=== PATIENT | female | born 1945 | race African-American/Black ===

== ENCOUNTER → 2016-10-22 | Day surgery (SDC) | payer MEDICARE ==
[~2016-10-22] MED LIST: ALPR0.254 PO; FENTANYL PF 100 MCG/2 ML VIAL. IV PRN; HYDR-971 PO; HYDROMORPHONE 2 MG/ML VIAL. IV PRN; IV RINGERS,LACTATED 1000ML 1,000 ML IV SCH; LIDOCAINE 1% 1 ML SYRINGE. ID PRN; LOSA50TA6 PO; MORPHINE SULFATE 2 MG/ML DISP.SYRIN. IV PRN; ONDANSETRON PF 4 MG/2 ML VIAL. IV PRN; PRAV10TA2 PO; PROCHLORPERAZINE 10 MG/2 ML VIAL. IV PRN; PROPOFOL 0 ML IV ONE; PROPOFOL 20 ML IV ONE; RABE20TA5 PO; TIZA2TAB PO
[2016-10-22 08:45] VITALS: BP 139/83
--- NOTE | 2016-10-22 23:54 | CONS ---
DATE OF CONSULTATION: 10/22/2016 REFERRING PHYSICIAN: HUBERT Fulton HISTORY OF PRESENT ILLNESS: A 71-year-old female with past medical history significant for osteoarthrosis, hyperlipidemia, hypertension and gastroesophageal reflux disease, seen for screening colon exam. Bowel habits have been regular without diarrhea or constipation. She has had stable weight since and reconfigured after a gastric bypass. There has been no diarrhea or constipation. No melena, no hematochezia. She is otherwise without additional complaints. PAST MEDICAL HISTORY: Hypertension, osteoarthrosis, hyperlipidemia, reflux, morbid obesity, status post gastric bypass, back surgery, hysterectomy, joint replacement, tubal ligation. ALLERGIES: Erythromycin. MEDICATIONS: Include Aciphex, losartan, pravastatin, tizanidine, alprazolam and hydrocodone. FAMILY AND SOCIAL HISTORY: She does not drink or smoke. FAMILY HISTORY: Noncontributory. REVIEW OF SYSTEMS: Per records. PHYSICAL EXAMINATION: GENERAL: Reveals a well-nourished, well-developed female who is alert, cooperative, in no acute distress. VITAL SIGNS: Temperature is 98.8, pulse 78, respirations 20. HEENT: Normocephalic and atraumatic head. Pupils and extraocular muscles not tested. Sclerae anicteric. NECK: Supple. LUNGS: Clear. CARDIOVASCULAR: Reveals an S1, S2 without S3, S4 or appreciable murmur. ABDOMEN: Reveals a soft abdomen, normal bowel sounds, without appreciable hepatosplenomegaly. EXTREMITIES: Reveals no cyanosis, clubbing or edema. IMPRESSION: Colorectal screening is warranted at this time. Risks and benefits of procedure including risk of hemorrhage or perforation have been discussed with the patient who is willing to proceed at this time. I would like to thank, Anastasiya Aguayo, for allowing us to consult and participate in the patient's care. ASTRID MOREL MD DR: JATINDER/rae JOB#: [id number] / [id number]
== END | disposition home or self-care (01) ==
LOC: SURG 06:58
PROVIDERS: ATTEND Internal Medicine Gastroenterology
DX: Z12.11 Encounter for screening for malignant neoplasm of colon (principal); K57.30 Diverticulosis of large intestine without perforation or abscess without bleeding; K64.0 First degree hemorrhoids; E78.00 Pure hypercholesterolemia, unspecified; I10 Essential (primary) hypertension; E66.9 Obesity, unspecified; Z90.710 Acquired absence of both cervix and uterus; M19.90 Unspecified osteoarthritis, unspecified site
CPT/HCPCS: G0121; J2704

== ENCOUNTER 2017-09-27 19:10 | Emergency (ER) | payer MEDICARE ==
[~2017-09-27] VITALS: Ht 165.1 cm; Wt 83.9 kg
[~2017-09-27 19:10] MED LIST changes: -FENTANYL PF 100 MCG/2 ML VIAL. IV PRN; -HYDROMORPHONE 2 MG/ML VIAL. IV PRN; -IV RINGERS,LACTATED 1000ML 1,000 ML IV SCH; -LIDOCAINE 1% 1 ML SYRINGE. ID PRN; -MORPHINE SULFATE 2 MG/ML DISP.SYRIN. IV PRN; -ONDANSETRON PF 4 MG/2 ML VIAL. IV PRN; -PROCHLORPERAZINE 10 MG/2 ML VIAL. IV PRN; -PROPOFOL 0 ML IV ONE; -PROPOFOL 20 ML IV ONE; +RABE20TA18 PO; -RABE20TA5 PO
[2017-09-27 19:27] VITALS: BP 132/75
[2017-09-27] MEDS ORDERED: LIDOCAINE 1% / SOD BICARB 8.4% 20 ML VIAL. IJ ONE (19:45)
[2017-09-27] MEDS ORDERED: LIDOCAINE 1%/EPI 1:100,000 20 ML VIAL. INJ ONE (19:45)
--- NOTE | 2017-09-27 21:00 | PHYS DOC ---
Past Medical History Past Medical History: Arthritis, GERD, Hypertension Past Surgical History: Hysterectomy, Knee Replacement, Other Additional Past Surgical Histo: BACK SX Alcohol Use: None Drug Use: None Adult General Chief Complaint Chief Complaint: MECHANICAL FALL HPI HPI Patient is a 72 year old [f__sex] who presents with [] Review of Systems Review of Systems Constitutional: Denies fever or chills [] Eyes: Denies change in visual acuity, redness, or eye pain [] HENT: Denies nasal congestion or sore throat [] Respiratory: Denies cough or shortness of breath [] Cardiovascular: No additional information not addressed in HPI [] GI: Denies abdominal pain, nausea, vomiting, bloody stools or diarrhea [] : Denies dysuria or hematuria [] Musculoskeletal: Denies back pain or joint pain [] Integument: Denies rash or skin lesions [] Neurologic: Denies headache, focal weakness or sensory changes [] Endocrine: Denies polyuria or polydipsia [] All other systems were reviewed and found to be within normal limits, except as documented in this note. Current Medications Current Medications Current Medications Medications (Trade) Dose Ordered Sig/Abe Start Time Stop Time Status Last Admin Dose Admin Lidocaine/ Epinephrine (Xylocaine 1%-Epi 1:100,000) 20 ml 1X ONCE 09/27/17 19:45 09/27/17 19:46 DC Lidocaine/Sodium Bicarbonate (Buffered Lidocaine 1%) 20 ml 1X ONCE 09/27/17 19:45 09/27/17 19:48 DC 09/27/17 19:45 20 ML Allergies Allergies Allergies Coded Allergies Type Severity Reaction Last Updated Verified erythromycin base Allergy Intermediate 10/22/16 Yes Physical Exam Physical Exam Constitutional: Well developed, well nourished, no acute distress, non-toxic appearance. [] HENT: Normocephalic, atraumatic, bilateral external ears normal, oropharynx moist, no oral exudates, nose normal. [] Eyes: PERRLA, EOMI, conjunctiva normal, no discharge. [] Neck: Normal range of motion, no tenderness, supple, no stridor. [] Cardiovascular:Heart rate regular rhythm, no murmur [] Lungs & Thorax: Bilateral breath sounds clear to auscultation [] Abdomen: Bowel sounds normal, soft, no tenderness, no masses, no pulsatile masses. [] Skin: Warm, dry, no erythema, no rash. [] Back: No tenderness, no CVA tenderness. [] Extremities: No tenderness, no cyanosis, no clubbing, ROM intact, no edema. [] Neurologic: Alert and oriented X 3, normal motor function, normal sensory function, no focal deficits noted. [] Psychologic: Affect normal, judgement normal, mood normal. [] Current Patient Data Vital Signs Vital Signs Date Time Temp Pulse Resp B/P (MAP) Pulse Ox O2 Delivery O2 Flow Rate FiO2 09/27/17 19:27 98.1 70 16 132/75 (94) 97 Room Air 98.1 EKG EKG [] Radiology/Procedures Radiology/Procedures [] Course & Med Decision Making Course & Med Decision Making Pertinent Labs and Imaging studies reviewed. (See chart for details) [] Dragon Disclaimer Dragon Disclaimer This electronic medical record was generated, in whole or in part, using a voice recognition dictation system. Departure Departure Impression: Primary Impression: Fall Additional Impressions: Forehead laceration Contusion of knee Head injury Disposition: HOME, SELF-CARE Condition: IMPROVED Referrals: KWASI OWEN (PCP) Patient Instructions: Head Injury, Adult, [id number] Additional Instructions: Follow head injury instructions as printed. Clean the laceration gently once or twice a day with warm soapy water on a washcloth, pat dry, and covered with ointment such as Vaseline. Sutures need to be removed on Thursday. Problem Qualifiers ROSE MARY DELANEY MD Sep 27, 2017 21:00
--- NOTE | 2017-09-28 07:24 | RAD ---
Knee x-rays Indication: Bilateral knee pain status post fall. Technique: 3 views of the bilateral knees Comparison: Right knee x-rays from 06/23/2010 and left knee x-rays from 07/22/2010 Findings: Right knee: Status post total knee arthroplasty. The prosthetic components are in normal anatomic alignment without periprosthetic lucency to suggest loosening. No acute fracture or dislocation. No suprapatellar effusion. No soft tissue abnormality. Left knee: Status post total knee arthroplasty. The prostatic components are in normal anatomic alignment without periprostatic lucency to suggest loosening. Well-corticated osseous density is seen projecting lateral to the lateral femoral condyle which likely represents old avulsion fracture. No acute fracture or dislocation. No suprapatellar effusion. Impression: 1. Status post bilateral knee arthroplasty without radiographic evidence of prosthetic loosening. 2. No acute fracture or dislocation.
== END 2017-09-27 21:06 | disposition home or self-care (01) ==
LOC: ER 19:10
DX: S01.81XA Laceration without foreign body of other part of head, initial encounter (principal); S80.02XA Contusion of left knee, initial encounter; S80.01XA Contusion of right knee, initial encounter; I10 Essential (primary) hypertension; K21.9 Gastro-esophageal reflux disease without esophagitis; Z90.710 Acquired absence of both cervix and uterus; Z96.653 Presence of artificial knee joint, bilateral; Z88.1 Allergy status to other antibiotic agents; W18.39XA Other fall on same level, initial encounter; Y93.89 Activity, other specified; Y99.8 Other external cause status; Y92.89 Other specified places as the place of occurrence of the external cause
CPT/HCPCS: 73562; 96372; 99284

== ENCOUNTER 2020-07-21 12:04 | Emergency (ER) | payer MEDICARE ==
[~2020-07-21] VITALS: Ht 167.6 cm; Wt 86.0 kg
[~2020-07-21 12:04] MED LIST changes: +HYDR-3164 PO; -HYDR-971 PO; +LOSA-73 PO; -LOSA50TA6 PO; -TIZA2TAB PO; +TIZA2TAB4 PO
[2020-07-21 12:43] VITALS: BP 133/89
--- NOTE | 2020-07-21 13:12 | PHYS DOC ---
Past Medical History Past Medical History: Arthritis, GERD, Hypertension (DIONEJOSÉ M AGRICULTURAL EDUCATION PROFESSOR) Past Surgical History: Hysterectomy, Knee Replacement, Other Additional Past Surgical Histo: BACK SX (VILMA PARHAMBetzy Ramos AGRICULTURAL EDUCATION PROFESSOR) Smoking Status: Never Smoker Alcohol Use: None Drug Use: None (JOSÉ PARHAM Rachel AGRICULTURAL EDUCATION PROFESSOR) General Adult EDM: Chief Complaint: MECHANICAL FALL HPI: HPI: Patient is a 75 year old female who presents with states today she was walking into the kitchen from the living room with her cane when she fell hitting her face on the floor. Patient does have a lower left lip tooth puncture wound with 1+ swelling. There is no laceration. There is no bleeding. Patient denies syncope. She states that she not even know that she was falling and it just happened. She states she does not know what happened. She states she has fallen in the past. She also complains of left hip pain and swelling. She is walking with her walker so she is putting pressure on that extremity. Patient is rating her lip and hip aching pain at a 3 out of 10. Patient denies dizziness, syncope, headache, vision changes, numbness or tingling, focal weakness, chest pain, shortness of air, abdominal pain, nausea, vomiting, diarrhea, dysuria symptoms, back pain, neck pain. She states her tetanus shot is up-to-date. She has a history of hypertension, GERD, arthritis, hysterectomy, knee replacement. (JOSÉ PARHAM Rachel AGRICULTURAL EDUCATION PROFESSOR) Review of Systems: Review of Systems: Constitutional: Denies fever or chills. [] Eyes: Denies change in visual acuity. [] HENT: Denies nasal congestion or sore throat. Left lower lip swelling and pain. [] Respiratory: Denies cough or shortness of breath. [] Cardiovascular: Denies chest pain. Left lower lip 1+ and left hip 1+ edema. [] GI: Denies abdominal pain, nausea, vomiting, bloody stools or diarrhea. [] : Denies dysuria. [] Musculoskeletal: Denies back pain. Left hip pain. Joint pain. [] Integument: Denies rash. 2 puncture langston into the left lower lip. [] Neurologic: Denies headache, focal weakness or sensory changes. [] Endocrine: Denies polyuria or polydipsia. [] Lymphatic: Denies swollen glands. [] Psychiatric: Denies depression or anxiety. [] (JOSÉ PARHAM APRN) Heart Score: Risk Factors: Risk Factors: DM, Current or recent (<one month) smoker, HTN, HLP, family history of CAD, obesity. Risk Scores: Score 0 - 3: 2.5% MACE over next 6 weeks - Discharge Home Score 4 - 6: 20.3% MACE over next 6 weeks - Admit for Clinical Observation Score 7 - 10: 72.7% MACE over next 6 weeks - Early Invasive Strategies (JOSÉ PARHAM AGRICULTURAL EDUCATION PROFESSOR) Allergies: Allergies: Allergies Coded Allergies Type Severity Reaction Last Updated Verified erythromycin base Allergy Intermediate 10/22/16 Yes (JOSÉ PARHAM APRN) Physical Exam: PE: Constitutional: Well developed, well nourished, no acute distress, non-toxic appearance. [] HENT: Normocephalic, atraumatic, bilateral external ears normal, oropharynx moist, no oral exudates, nose normal. [] Eyes: PERRLA, EOMI, conjunctiva normal, no discharge. [] Neck: Normal range of motion, no tenderness, supple, no stridor. [] Cardiovascular:Heart rate regular rhythm, no murmur [] Lungs & Thorax: Bilateral breath sounds clear to auscultation [] Abdomen: Bowel sounds normal, soft, no tenderness, no masses, no pulsatile masses. [] Skin: Warm, dry, no erythema, no rash. Left lower lip tooth puncture langston. [] Back: No tenderness, no CVA tenderness. [] Extremities: No tenderness, no cyanosis, no clubbing, ROM intact, left hip 1+ edema. [] Neurologic: Alert and oriented X 3, normal motor function, normal sensory function, no focal deficits noted. [] Psychologic: Affect normal, judgement normal, mood normal. [] ([facility] AGRICULTURAL EDUCATION PROFESSOR) Current Patient Data: Vital Signs: Vital Signs Date Time Temp Pulse Resp B/P (MAP) Pulse Ox O2 Delivery O2 Flow Rate FiO2 07/21/20 12:43 98.2 78 18 133/89 (104) 97 Room Air 98.2 ([facility]UNG AGRICULTURAL EDUCATION PROFESSOR) EKG: EK and read by Dr Tanquary as Sinus Rhythm and no STEMI[] (JOSÉ PARHAM APRN) Radiology/Procedures: Radiology/Procedures: [] Impression: [facility] [address] [place] [address] IMAGING REPORT Signed PATIENT: SAIRA PACKER ACCOUNT: [id number] : 1945 LOCATION: ER AGE: 75 SEX: F EXAM STATUS: REG ER ORD. PHYSICIAN: JOSÉ PARHAM APRN REASON: fall, PAIN LEFT HIP PROCEDURE: HIP LEFT 2V WITH PELVIS HIP LEFT 2V WITH PELVIS DATE: 07/21/2020 12:00 AM INDICATION: Reason: fall, PAIN LEFT HIP / Spl. Instructions: / History: COMPARISON: None. FINDINGS: Bones: There is no evidence of acute fracture or dislocation. Joints: The joint spaces are normal. Miscellaneous: None. IMPRESSION: No evidence of acute fracture. Electronically signed by: Lizet Galarza MD (07/21/2020 1:36 PM) [id number] DICTATED and SIGNED BY: LIZET GALARZA MD DATE: 07/21/20 1336 [facility] [address] [place] [address] IMAGING REPORT Signed PATIENT: SAIRA PACKER ACCOUNT: [id number] : 1945 LOCATION: ER AGE: 75 SEX: F EXAM STATUS: REG ER ORD. PHYSICIAN: JOSÉ PARHAM APRN REASON: fall PROCEDURE: CT HEAD AND MAXILLOFACIAL WO EXAM: Head CT without contrast; maxillofacial bone CT without contrast; cervical spine CT without contrast. HISTORY: Fall. TECHNIQUE: Computed tomographic images of the head, maxillofacial bones and cervical spine were obtained without contrast. *One or more of the following individualized dose reduction techniques were utilized for this examination: 1. Automated exposure control. 2. Adjustment of the mA and/or kV according to patient size. 3. Use of iterative reconstruction technique. COMPARISON: None. FINDINGS: Head: There is no intracranial hemorrhage. There is no mass effect or midline shift. There is no hydrocephalus. There is extensive decreased attenuation throughout the cerebral white matter. No calvarial lesion is seen. There is minimal fluid within the left mastoid air cells. Maxillofacial bones: No fracture is seen. There is evidence of lens surgery. There is mild rightward nasal septal deviation. The ostiomeatal meatal units are patent. There is minimal superior left maxillary sinus because of thickening. The temporomandibular joints are intact. There are multiple dental restorations. Cervical spine: There is mild cervical kyphosis. There is minimal anterolisthesis of C7 on T1. There is degenerative endplate remodeling with disc space narrowing and osteophytosis primarily at the mid lower cervical levels. There is multilevel facet arthropathy. No fracture is seen. There is no suspicious osseous lesion. The combination of degenerative changes results in moderate bilateral foraminal stenosis and mild central canal stenosis at C4-C5, moderate right and severe left foraminal and moderate to severe central canal stenosis at C5-C6, moderate right foraminal and moderate central canal stenosis at C6-C7, and mild right foraminal stenosis at C7-T1. IMPRESSION: 1. No acute intracranial finding no evidence of acute maxillofacial bone trauma or cervical spine trauma. 2. Extensive bilateral cerebral white matter changes. This can be seen with advanced chronic small vessel disease. The possibility of changes due to prior radiation can also be considered in the appropriate clinical setting. 3. Multilevel degenerative change involving the cervical spine, resulting in stenosis as described above. Electronically signed by: Berkley Aguilar MD (07/21/2020 2:13 PM) [id number] DICTATED and SIGNED BY: BERKLEY AGUILAR MD DATE: 07/21/20 1413 (JOSÉ PARHAM APRN) Course & Med Decision Making: Course & Med Decision Making Pertinent Labs and Imaging studies reviewed. (See chart for details) See HPI. No left hip tenderness but patient is able to walk and bend at the hip and put pressure on the extremity. There is 1+ swelling to that left hip. Abdomen is soft and nontender. No damage to her teeth but she did not bite her tongue. No swelling, pain, bruising, deformity to her face or skull. No focal bony spinal tenderness with palpation. No deformity to the spine. No bruising to her back. No crepitus or tenderness to the chest or the ribs bilaterally. She denies any shortness of breath. Speaks in full complete sentences. Alert and oriented x4. Skin pink warm and dry. Ambulatory with her cane with a steady gait. Urinalysis shows infection. EKG shows sinus rhythm and no STEMI. Troponin normal. Blood work unremarkable. I have spoken to Dr Arora and he states that the patient can go home on antibiotics but if the patient was to stay and be watched because of the situation around the fall and the patient unaware that she was falling he states that she could be admitted if she wants to be. [] (JOSÉ PARHAM APRN) Dragon Disclaimer: Dragon Disclaimer: This electronic medical record was generated, in whole or in part, using a voice recognition dictation system. (JOSÉ PARHAM APRN) Departure Departure Impression: Primary Impression: UTI (urinary tract infection) Qualified Codes: N39.0 - Urinary tract infection, site not specified Additional Impressions: Fall Qualified Codes: W19.XXXA - Unspecified fall, initial encounter Hip pain Lip injury Qualified Codes: S09.93XA - Unspecified injury of face, initial encounter Disposition: 01 DC HOME SELF CARE/HOMELESS Condition: STABLE Referrals: KELIN LONGORIA MD (PCP) Patient Instructions: Fall Prevention and Home Safety, [id number], Hip Pain, Urinary Tract Infection Additional Instructions: Follow up with primary care provider as soon as possible. If this happens again return to the ED. Drink plenty of fluids. Take medication as prescribed. Take tylenol for your pain. Scripts Sulfamethoxazole/Trimethoprim (BACTRIM DS TABLET) 1 Each Tablet 1 TAB PO BID for 7 Days, #14 TAB 0 Refills Prov: JOSÉ PARHAM APRN 07/21/20 Attending Signature Attending Signature I have reviewed the non-physician practitioner's documentation, personally taken the patient's history, performed an exam and agree with the physical findings, clinical impression, and management plan. (HASMUKH SLOAN DO) Attending Signature I have participated in the care of this patient and I have reviewed and agree with all pertinent clinical information above including history, exam, and recommendations. (JOSÉ PARHAM APRN) JOSÉ PARHAM APRN Jul 21, 2020 13:11 HASMUKH SLAON DO Jul 21, 2020 14:36
[2020-07-21 13:19] LABS: BASO % 1 % (0-3); EOS # 0.1 x10^3/uL (0.0-0.7); EOS % 2 % (0-3); HEMATOCRIT 39.9 % (36.0-47.0); HEMOGLOBIN 12.7 g/dL (12.0-15.5); LYMPH # 1.9 x10^3/uL (1.0-4.8); LYMPH % 31 % (24-48); MEAN CORPUSCULAR HEMOGLOBIN 28 pg (25-35); MEAN CORPUSCULAR HGB CONC 32 g/dL (31-37); MEAN CORPUSCULAR VOLUME 88 fL (79-100); MONO # 0.6 x10^3/uL (0.0-1.1); MONO % 10 % (0-9); NEUT # 3.6 x10^3/uL (1.8-7.7); NEUT % 57 % (31-73); PLATELET COUNT 270 x10^3/uL (140-400); RED BLOOD COUNT 4.56 x10^6/uL (3.50-5.40); RED CELL DISTRIBUTION WIDTH 14.9 % (11.5-14.5); WHITE BLOOD COUNT 6.3 x10^3/uL (4.0-11.0)
[2020-07-21 13:20] LABS: BILIRUBIN,URINE SMALL (NEG); CLARITY,URINE CLOUDY; COLOR,URINE YELLOW; NITRITE,URINE NEGATIVE (NEG); PH,URINE 6.5 (<5.0-8.0); PROTEIN,URINE NEGATIVE (NEG-TRACE)
[2020-07-21 13:26] LABS: HYALINE CASTS, URINE MODERATE /HPF
[2020-07-21 13:27] LABS: BACTERIA,URINE MANY /HPF (0-FEW); WBC,URINE 20-40 /HPF (0-4)
[2020-07-21 13:29] LABS: CALCIUM 9.3 mg/dL (8.5-10.1); CREATININE 1.1 mg/dL (0.6-1.0); GFR 58.7; POTASSIUM 3.8 mmol/L (3.5-5.1)
[2020-07-21 13:36] LABS: ALBUMIN 3.6 g/dL (3.4-5.0); TOTAL BILIRUBIN 0.2 mg/dL (0.2-1.0); TOTAL PROTEIN 7.2 g/dL (6.4-8.2)
--- NOTE | 2020-07-21 13:39 | RAD ---
HIP LEFT 2V WITH PELVIS DATE: 07/21/2020 12:00 AM INDICATION: Reason: fall, PAIN LEFT HIP / Spl. Instructions: / History: COMPARISON: None. FINDINGS: Bones: There is no evidence of acute fracture or dislocation. Joints: The joint spaces are normal. Miscellaneous: None. IMPRESSION: No evidence of acute fracture. Electronically signed by: Jorge Galarza MD (07/21/2020 1:36 PM) [id number]
--- NOTE | 2020-07-21 14:16 | RAD ---
EXAM: Head CT without contrast; maxillofacial bone CT without contrast; cervical spine CT without contrast. HISTORY: Fall. TECHNIQUE: Computed tomographic images of the head, maxillofacial bones and cervical spine were obtained without contrast. *One or more of the following individualized dose reduction techniques were utilized for this examination: 1. Automated exposure control. 2. Adjustment of the mA and/or kV according to patient size. 3. Use of iterative reconstruction technique. COMPARISON: None. FINDINGS: Head: There is no intracranial hemorrhage. There is no mass effect or midline shift. There is no hydrocephalus. There is extensive decreased attenuation throughout the cerebral white matter. No calvarial lesion is seen. There is minimal fluid within the left mastoid air cells. Maxillofacial bones: No fracture is seen. There is evidence of lens surgery. There is mild rightward nasal septal deviation. The ostiomeatal meatal units are patent. There is minimal superior left maxillary sinus because of thickening. The temporomandibular joints are intact. There are multiple dental restorations. Cervical spine: There is mild cervical kyphosis. There is minimal anterolisthesis of C7 on T1. There is degenerative endplate remodeling with disc space narrowing and osteophytosis primarily at the mid lower cervical levels. There is multilevel facet arthropathy. No fracture is seen. There is no suspicious osseous lesion. The combination of degenerative changes results in moderate bilateral foraminal stenosis and mild central canal stenosis at C4-C5, moderate right and severe left foraminal and moderate to severe central canal stenosis at C5-C6, moderate right foraminal and moderate central canal stenosis at C6-C7, and mild right foraminal stenosis at C7-T1. IMPRESSION: 1. No acute intracranial finding no evidence of acute maxillofacial bone trauma or cervical spine trauma. 2. Extensive bilateral cerebral white matter changes. This can be seen with advanced chronic small vessel disease. The possibility of changes due to prior radiation can also be considered in the appropriate clinical setting. 3. Multilevel degenerative change involving the cervical spine, resulting in stenosis as described above. Electronically signed by: Berkley Sutton MD (07/21/2020 2:13 PM) [id number]
[2020-07-21] MEDS ORDERED: SULF1TAB24 PO (14:33)
--- NOTE | 2020-07-21 14:50 | EKG ---
[facility] [address] [place] [address] Test Date: 2020-07-21 Test Time: 13:38:44 Pat Name: SAIRA PACKER Department: Room: Gender: F Chain Pegger: : 1945 Requested By: JOSÉ PARHAM Order Number: [id number] Reading MD: Measurements Intervals Brady Rate: 78 P: 0 UT: 176 QRS: 4 QRSD: 72 T: 28 QT: 392 QTc: 451 Interpretive Statements SINUS RHYTHM NORMAL ECG RI6.01 No previous ECG available for comparison
== END 2020-07-21 14:48 | disposition home or self-care (01) ==
LOC: ER 12:04
DX: S01.531A Puncture wound without foreign body of lip, initial encounter (principal); N39.0 Urinary tract infection, site not specified; R60.0 Localized edema; M25.552 Pain in left hip; M19.90 Unspecified osteoarthritis, unspecified site; K21.9 Gastro-esophageal reflux disease without esophagitis; I10 Essential (primary) hypertension; Z90.710 Acquired absence of both cervix and uterus; Z88.1 Allergy status to other antibiotic agents; Z98.890 Other specified postprocedural states; W18.09XA Striking against other object with subsequent fall, initial encounter; Y93.89 Activity, other specified; Y92.89 Other specified places as the place of occurrence of the external cause; Y99.8 Other external cause status
CPT/HCPCS: 36415; 70450; 70486; 72125; 73502; 80053; 81001; 84484; 85025; 87086; 93005; 99285